=== PATIENT | male | born 1960 ===

== ENCOUNTER 2019-02-09 09:06 | Emergency (ER) | payer OTHER ==
[2019-02-09 09:21] VITALS: BP 150/87
--- NOTE | 2019-02-09 09:36 | UC ---
Upper Extremity HPI - HPI Summary HPI Summary: L hand pain x1 wk. Pt. thinks he cut his hand about a week ago on a glass mirror but he can't be sure. base of palm is getting more painful and swollen. he is able to open/close his hand. - History of Current Complaint Chief Complaint: UCGeneralIllness Stated Complaint: GLASS IN HAND Time Seen by Provider: 02/09/19 09:07 Hx Obtained From: Patient Pain Intensity: 7 Pain Scale Used: 0-10 Numeric Alleviating Factor(s): Heat Associated Signs And Symptoms: Positive: Swelling, Redness. Negative: Bruising , Fever, Numbness/Tingling - Allergies/Home Medications Allergies/Adverse Reactions: Allergies Allergy/AdvReac Type Severity Reaction Status Date / Time No Known Allergies Allergy Verified 02/09/19 09:20 Home Medications: Home Medications Aspirin EC TAB* [Ecotrin EC Low Dose 81 MG*] 81 mg PO DAILY 02/09/19 [History Confirmed 02/09/19] Ibuprofen TAB* [Advil TAB*] 800 mg PO ONCE PRN 02/09/19 [History Confirmed 02/09] Lisinopril TAB* [Prinivil TAB*] 25 mg PO DAILY 02/09/19 [History Confirmed 02/09] PMH/Surg Hx/FS Hx/Imm Hx Previously Healthy: Yes Cardiovascular History: Hypertension - Surgical History Surgical History: None - Family History Known Family History: Positive: Non-Contributory - Social History Alcohol Use: Occasionally Substance Use Type: None Smoking Status (MU): Light Every Day Tobacco Smoker Type: Cigarettes Amount Used/How Often: 1/3 PPD Review of Systems All Other Systems Reviewed And Are Negative: Yes Constitutional: Negative: Fever, Chills Skin: Positive: Other - redness/swelling. Negative: Bruising Respiratory: Negative: Shortness Of Breath Motor: Negative: Decreased ROM, Weakness Neurovascular: Negative: Decreased Sensation, Decreased Pulses Musculoskeletal: Positive: Edema - at base of palm L Neurological: Negative: Numbness Physical Exam Triage Information Reviewed: Yes Appearance: Well-Appearing Vital Signs: Initial Vital Signs Temp 98.7 F 02/09/19 09:17 Pulse 87 02/09/19 09:17 Resp 16 02/09/19 09:17 BP 150/87 02/09/19 09:17 Pulse Ox 97 02/09/19 09:17 Vital Signs Reviewed: Yes Cardiovascular: Positive: Brisk Capillary Refill - left hand/fingers Musculoskeletal: Positive: ROM Intact - L hand and fingers., Edema @ - base of palm Left hand Neurological: Positive: Alert, Muscle Tone Normal - L hand Skin: Negative: Rashes Diagnostics - Radiology No standard instances Radiology Interpretation Completed By: Radiologist Summary of Radiographic Findings: IMPRESSION: Possible foreign body at the palmar aspect of the hamate bone seen on the lateral view radiograph. Upper Extremity Course/Dx - Course Course Of Treatment: 1 wk of L hand/base of palm swelling/redness/pain but able to use L hand normally. Suspected glass FB and this was verified on imaging. Plan is to have him quell infection w/ keflex and see surgeon for consult to see if excision is prudent or not. Blood Pressure elevated and he should f/u w/ pcp. - Differential Dx/Diagnosis Differential Diagnosis/HQI/PQRI: Osteomyelitis, Other Provider Diagnosis: Cellulitis, Foreign body Discharge ED - Sign-Out/Discharge Documenting (check all that apply): Patient Departure All imaging exams completed and their final reports reviewed: Yes - Discharge Plan Condition: Good Disposition: HOME Prescriptions: Cephalexin CAP* [Keflex CAP*] 500 mg PO BID 10 Days #20 cap Patient Education Materials: Soft Tissue Foreign Body (ED) Referrals: Marcelo Escalera MD [Medical Doctor] - Additional Instructions: Please call the surgeon on your paperwork so that they can evaluate you for possible excision given that it has been about a week. They can decide whether to let it come out on its own or that it is deep enough to investigate further. - Billing Disposition and Condition Condition: GOOD Disposition: Home - Attestation Statements Provider Attestation: Per institutional requirements, I have reviewed the chart, however, I was not consulted specifically or made aware of this patient by the midlevel provider. I did not personally evaluate, interact with , or disposition this patient.
[2019-02-09] MEDS ORDERED: Cephalexin CAP* 500 MG PO ONE (10:01)
== END 2019-02-09 10:10 | disposition home or self-care (01) ==
LOC: UCEAST 09:06
DX: S60.459A Superficial foreign body of unspecified finger, initial encounter (principal); L03.012 Cellulitis of left finger; I10 Essential (primary) hypertension; F17.210 Nicotine dependence, cigarettes, uncomplicated; Z79.899 Other long term (current) drug therapy; Z79.82 Long term (current) use of aspirin; W25.XXXA Contact with sharp glass, initial encounter; Y92.9 Unspecified place or not applicable
CPT/HCPCS: 99202; A9270-GY; G0463

== ENCOUNTER 2019-02-11 11:07 | Day surgery (SDC) | payer OTHER ==
[2019-02-11] MEDS ORDERED: Lidocaine 1% INJ* 10 MG/ML 30 ML SDV ONE (12:40)
[2019-02-11 13:49] VITALS: BP 121/94
--- NOTE | 2019-02-12 01:41 | OP ---
CC: Dr. Amaya OPERATIVE NOTE: DATE OF OPERATION: 02/11/19 DATE OF : 60 SURGEON: Shaylee Amaya MD CASE HARDENER: None. ANESTHESIA: Local. PRE-OP DIAGNOSIS: Foreign body in the left hand. POST-OP DIAGNOSIS: Left hand infection. OPERATIVE PROCEDURE: Left hand incision and drainage. ESTIMATED BLOOD LOSS: Zero. TOURNIQUET TIME: About 15 minutes. INDICATIONS FOR PROCEDURE: Zackary is a 58-year-old male who cut his hand several days ago, he thinks on a mirror. He does not recall the actual puncture wound, but he has had progressively increasing s welling, pain and redness in his hand. He was seen in the emergency department and was started on so me oral antibiotics. He had an x-ray and there was a questionable foreign body which did not appear to be a shard of glass, in fact it had rounded edges. He presents for foreign body removal from the left hand. DESCRIPTION OF PROCEDURE: The patient was brought to the operating room, was given a local infiltrat ions with 10 cc of 1% plain lidocaine. The skin of his right upper extremity was prepped and draped in the usual sterile fashion. The hand and forearm were exsanguinated and the tourniquet elevated to 250 mmHg. A longitudinal incision was made over the area of erythema and where there was a puncture wound and carefully dissected through the subcutaneous tissue and no foreign body was found; however , there was purulent material and this was cultured. The wound was then copiously irrigated with venu ine and then closed loosely with 4-0 nylon suture in interrupted fashion. The wounds were dressed wi th Xeroform, 4x4, Webril, and an Efrain wrap. The patient was instructed to start warm soapy water soak s tomorrow. The patient was brought to the recovery room in good condition. [id number]/[facility] #: [id number]
== END 2019-02-11 14:00 | disposition home or self-care (01) ==
LOC: OREAST 11:07
PROVIDERS: ATTEND Orthopaedic Surgery
DX: S61.432A Puncture wound without foreign body of left hand, initial encounter (principal); L03.113 Cellulitis of right upper limb; X58.XXXA Exposure to other specified factors, initial encounter; Y93.89 Activity, other specified; Y92.009 Unspecified place in unspecified non-institutional (private) residence as the place of occurrence of the external cause; I10 Essential (primary) hypertension
CPT/HCPCS: 87070; 87073; 87077; 87186; 87205